=== PATIENT | female | born 1980 | race Caucasian/White ===

== ENCOUNTER 2022-03-14 13:32 | Emergency (ER) | payer OTHER, SELFPAY ==
[2022-03-14 13:56] VITALS: BP 134/86; PULSE 86; RESP 18; TEMP 36.7; O2SAT 97; BMI 37.8
[2022-03-14 14:35] LABS: BUN Creatinine Ratio 17.8 (6-22); Blood Urea Nitrogen 13 mg/dL (7-17); Calcium 8.8 mg/dL (8.4-10.2); Carbon Dioxide 26 mmol/L (22-32); Chloride 105 mmol/L (98-107); Estimated Glomerular Filt Rate > 60 mL/min (>60); Glucose 97 mg/dL (70-100); HEMOLYSIS < 15 (0-50); Potassium 4.5 mmol/L (3.4-5.1); Sodium 139 mmol/L (137-145)
[2022-03-14 14:40] LABS: Add Manual Diff / Slide Review NO; Basophils Absolute Auto 0 /uL (0-100); Basophils Percent Auto 0.5 % (0-2); Eosinophils Absolute Auto 200 /uL (0-450); Eosinophils Percent Auto 2.1 % (2-4); Hematocrit 38.2 % (36-46); Hemoglobin 12.3 g/dL (12.0-16.0); Lymphocytes Absolute Auto 2700 /uL (1100-4500); Lymphocytes Percent Auto 32.5 % (25-40); Mean Corpuscular HGB Conc 32.2 % (30-36); Mean Corpuscular Hemoglobin 25.7 PG (26-34); Mean Corpuscular Volume 79.9 fL (80-100); Monocytes Absolute Auto 500 /uL (0-900); Monocytes Percent Auto 5.9 % (3-14); Neutrophils Absolute Auto 4900 /uL (1500-7000); Platelet Count 302 X10^3/uL (150-400); Red Blood Cell Count 4.78 X10^6/uL (4.0-5.2); Red Cell Distribution Width 15.6 % (11.6-14.8); White Blood Cell Count 8.3 X10^3/uL (4.5-11.0)
[2022-03-14 15:11] LABS: Pregnancy Test Serum,Qual Negative (Negative)
--- NOTE | 2022-03-14 16:21 | DI.CT.S_ITS ---
PROCEDURE: CT ABDOMEN PELVIS W CON INDICATIONS: LLQ pain TECHNIQUE: After the administration of intravenous contrast, axial sections acquired from the lung bases to the pubic symphysis. Coronal and sagittal reformats were performed. For radiation dose reduction, the following was used: automated exposure control, adjustment of mA and/or kV according to patient size. COMPARISON: None. FINDINGS: Image quality: Excellent. Lung bases: Unremarkable. Heart: No significant findings. ABDOMEN: Liver: Unremarkable. Gallbladder: Unremarkable. Biliary ducts: Unremarkable. Pancreas: Unremarkable. Spleen: Unremarkable. Adrenal Glands: Unremarkable. Kidneys and Ureters: Unremarkable. Stomach and Bowel: Stomach, small bowel loops, and colon are unremarkable. The appendix is thin walled and gas filled. Peritoneum: No abnormal intraperitoneal fluid. No free air. Ventral Wall: No hernias. Abdominal Nodes: No retroperitoneal or mesenteric adenopathy by size criteria. Vessels: Aorta and inferior vena cava are normal in size. PELVIS: Pelvic Organs: The uterus and left ovary are grossly unremarkable. There are 2 low-density right ovarian cysts noted. Bladder: Unremarkable. Pelvic Nodes: No enlarged lymph nodes. Miscellaneous: No hernias are seen. Bones: Unremarkable. IMPRESSION: 1. No acute intra-abdominal findings. Normal appendix. 2. 2 low-density right ovarian cysts which are within physiologic limits for size in a premenopausal female. However, if further characterization is warranted, nonemergent pelvic ultrasound could be used. Dictated by: Deborah Palacios M.D. on 03/14/2022 at 16:52 Approved by: Deborah Palacios M.D. on 03/14/2022 at 16:55
--- NOTE | 2022-03-14 16:23 | ED_ITS ---
HPI - Female Genitourinary <Jessee Nails PA-C - Last Filed: 03/15/22 13:43> General Chief complaint: Vaginal Bleeding Stated complaint: pain in LT side/bleeding not cycle time T-1 Time Seen by Provider: 03/14/22 16:01 Source: patient Mode of arrival: Ambulatory History of Present Illness HPI Narrative: 41-year-old female with no reported past medical history presents to the ED with midcycle vaginal spotting. Patient also endorses left lower quadrant pain. Patient is on oral contraceptives and endorses good compliance with it. Denies that she missed any pills recently, and takes them at the same time daily. Patient denies fever, chills, chest pain, shortness of breath, nausea, vomiting, diarrhea, constipation, dysuria, lightheadedness, dizziness, syncope. Patient states that her spotting started yesterday. Related Data Allergies Allergy/AdvReac Type Severity Reaction Status Date / Time No Known Drug Allergies Allergy Verified 03/14/22 13:56 Review of Systems <Jessee Nails PA-C - Last Filed: 03/15/22 13:43> Review of Systems ROS Unobtainable: All systems reviewed & are unremarkable except as noted in HPI and below Constitutional Constitutional: Denies chills, Denies fatigue, Denies fever(s), Denies frequent falls, Denies lethargy and Denies weakness Eyes Eyes: Denies change in vision, Denies eye discharge, Denies irritation and Denies loss of vision ENT Ears, Nose, Mouth, and Throat: Denies change in voice, Denies dizziness, Denies neck pain, Denies sore throat and Denies throat swelling Cardiovascular Cardiovascular: Denies chest pain, Denies irregular heart rhythm, Denies lightheadedness, Denies palpitations, Denies dyspnea, Denies dyspnea on exertion and Denies orthopnea Respiratory Respiratory: Denies cough, Denies dyspnea, Denies dyspnea on exertion and Denies wheezing Gastrointestinal Gastrointestinal: Reports abdominal pain, Denies change in bowel habits, Denies diarrhea, Denies nausea and Denies vomiting Genitourinary Genitourinary: Reports abnormal vaginal bleeding, Denies hematuria, Denies flank pain, Denies urinary incontinence and Denies urinary urgency Musculoskeletal Musculoskeletal: Denies back pain, Denies muscle weakness, Denies neck pain, Denies numbness and Denies tingling Integumentary/Breasts Skin/Breast: Denies pruritus, Denies erythema, Denies rash and Denies wounds Neurologic Neurologic: Denies behavioral changes, Denies confusion, Denies dizziness, Denies frequent falls, Denies loss of vision, Denies numbness, Denies tingling and Denies weakness Psychiatric Psychiatric: Denies anxiety, Denies behavioral changes, Denies confusion, Denies depression, Denies homicidal ideation and Denies suicidal ideation Endocrine Endocrine: Denies fatigue, Denies flushing and Denies palpitations Hematologic/Lymphatic Hematologic/Lymphatic: Denies easy bruising Allergic/Immunologic Allergic/Immunologic: Denies urticaria, Denies throat swelling and Denies wheezing Patient History <Jessee Nails PA-C - Last Filed: 03/15/22 13:43> alcohol intake frequency: holidays/special occasions only Substance Use Type: does not use Exam <HAYDEN Frausto Last Filed: 03/15/22 13:43> Narrative Exam Narrative: Const General:?cooperative, healthy appearing and comfortable [facility] Head:?normal to inspection Ears:?hearing grossly normal bilaterally Nose:?external nose normal Face and sinus:?normal facial exam and sinuses nontender Mouth:?oral mucosae normal Throat:?posterior oropharynx normal Eyes General:?appearance normal, both eyes and all related structures Neck Neck:?normal visual inspection and no lymphadenopathy noted Resp Effort & Inspection:?normal respiratory effort Auscultation:?clear to auscultation bilaterally Cardio Rate:?regular rate Rhythm:?regular rhythm GI Abdomen is soft, nondistended. Tenderness to palpation in the left lower quadrant. No CVA tenderness. Neuro General:?patient alert, patient awake and patient oriented x3 Initial Vital Signs Initial Vital Signs: Vital Signs Temperature 98.0 F 03/14/22 13:56 Pulse Rate 86 03/14/22 13:56 Respiratory Rate 18 03/14/22 13:56 Blood Pressure 134/86 03/14/22 13:56 Pulse Oximetry 97 03/14/22 13:56 Oxygen Delivery Method 03/14/22 13:56 <Low Zeng DO - Last Filed: 03/16/22 10:40> Initial Vital Signs Initial Vital Signs: Vital Signs Temperature 98.0 F 03/14/22 13:56 Pulse Rate 86 03/14/22 13:56 Respiratory Rate 18 03/14/22 13:56 Blood Pressure 134/86 03/14/22 13:56 Pulse Oximetry 97 03/14/22 13:56 Oxygen Delivery Method 03/14/22 13:56 Course <Jessee Nails PA-C - Last Filed: 03/15/22 13:43> Orders Ordered: Discontinued Medications Ketorolac Tromethamine (Ketorolac 30 Mg/Ml Vial) 15 mg IV NOW ONE Stop: 03/14/22 16:22 Last Admin: 03/14/22 16:56 Dose: 15 mg Documented By: LIONEL Vital Signs Vital signs: Vital Signs - 8 hr 03/14/22 13:56 03/14/22 19:14 Temperature 98.0 F Pulse Rate 86 81 Respiratory Rate 18 16 Blood Pressure 134/86 125/87 Pulse Oximetry 97 98 Oxygen Delivery Method Room Air Room Air <Low Zeng DO - Last Filed: 03/16/22 10:40> Orders Ordered: Discontinued Medications Ketorolac Tromethamine (Ketorolac 30 Mg/Ml Vial) 15 mg IV NOW ONE Stop: 03/14/22 16:22 Last Admin: 03/14/22 16:56 Dose: 15 mg Documented By: RL Vital Signs Vital signs: Vital Signs - 8 hr 03/14/22 13:56 03/14/22 19:14 Temperature 98.0 F Pulse Rate 86 81 Respiratory Rate 18 16 Blood Pressure 134/86 125/87 Pulse Oximetry 97 98 Oxygen Delivery Method Room Air Room Air MDM - Female Genitourinary <Jessee Nails PA-C - Last Filed: 03/15/22 13:43> Lab Data Result diagrams: 03/14/22 14:05 03/14/22 14:05 Labs: Lab Results 03/14/22 03/14/22 03/14/22 Range/Units 14:05 14:05 14:05 WBC 8.3 (4.5-11.0) X10^3/uL RBC 4.78 (4.0-5.2) X10^6/uL Hgb 12.3 (12.0-16.0) g/dL Hct 38.2 (36-46) % MCV 79.9 L (80-100) fL MCH 25.7 L (26-34) PG MCHC 32.2 (30-36) % RDW 15.6 H (11.6-14.8) % Plt Count 302 (150-400) X10^3/uL Neut % (Auto) 59.0 (50-75) % Lymph % (Auto) 32.5 (25-40) % [place] % (Auto) 5.9 (3-14) % Eos % (Auto) 2.1 (2-4) % Baso % (Auto) 0.5 (0-2) % Neut # (Auto) 4900 (2375-0195) /uL Lymph # (Auto) 2700 (7325-6844) /uL [place] # (Auto) 500 (0-900) /uL Eos # (Auto) 200 (0-450) /uL Baso # (Auto) 0 (0-100) /uL Sodium 139 (137-145) mmol/L Potassium 4.5 (3.4-5.1) mmol/L Chloride 105 (98-107) mmol/L Carbon Dioxide 26 (22-32) mmol/L BUN 13 (7-17) mg/dL Creatinine 0.73 (0.52-1.04) mg/dL Estimated GFR > 60 (>60) mL/min BUN/Creatinine Ratio 17.8 (6-22) Glucose 97 (70-100) mg/dL Calcium 8.8 (8.4-10.2) mg/dL Serum , Qual (Negative) Urine RBC (0-5/HPF) Urine WBC (0-5/HPF) Ur Squamous Epith Cells (0-5/HPF) Amorphous Sediment Urine Bacteria (None) Ur Culture Indicated? Blood Type A Positive Antibody Screen Negative 03/14/22 03/14/22 Range/Units 14:05 16:07 WBC (4.5-11.0) X10^3/uL RBC (4.0-5.2) X10^6/uL Hgb (12.0-16.0) g/dL Hct (36-46) % MCV (80-100) fL MCH (26-34) PG MCHC (30-36) % RDW (11.6-14.8) % Plt Count (150-400) X10^3/uL Neut % (Auto) (50-75) % Lymph % (Auto) (25-40) % [place] % (Auto) (3-14) % Eos % (Auto) (2-4) % Baso % (Auto) (0-2) % Neut # (Auto) (5381-1355) /uL Lymph # (Auto) (4703-5731) /uL [place] # (Auto) (0-900) /uL Eos # (Auto) (0-450) /uL Baso # (Auto) (0-100) /uL Sodium (137-145) mmol/L Potassium (3.4-5.1) mmol/L Chloride (98-107) mmol/L Carbon Dioxide (22-32) mmol/L BUN (7-17) mg/dL Creatinine (0.52-1.04) mg/dL Estimated GFR (>60) mL/min BUN/Creatinine Ratio (6-22) Glucose (70-100) mg/dL Calcium (8.4-10.2) mg/dL Serum , Qual Negative (Negative) Urine RBC 0-1/hpf (0-5/HPF) Urine WBC 0-1/hpf (0-5/HPF) Ur Squamous Epith Cells 0-1 /hpf (0-5/HPF) Amorphous Sediment 1+ Urine Bacteria Occasional (0-1) (None) Ur Culture Indicated? Cult not indicated Blood Type Antibody Screen Urine Dip Bedside Urine Glucose Negative Bedside Urine Bilirubin - Negative Bedside Urine Ketone - Negative Urine Specific [place] 1.015 Bedside Urine Occult Blood ++ Bedside Urine pH 6.5 Bedside Urine Protein - Negative Bedside Urine Urobilinogen - Negative Bedside Urine Nitrite - Negative Bedside Urine Leukocytes - Negative Esterase MDM Narrative Medical decision making narrative: 41-year-old female with no reported past medical history presents to the ED with midcycle vaginal spotting. Concern for intrauterine versus threatened miscarriage versus ruptured ectopic versus midcycle breakthrough spotting versus ovarian torsion versus diverticulitis versus other intra-abdominal pathology versus nephrolithiasis versus UTI versus pyelonephritis versus other. Will obtain labs, UA, lactate, CT abdomen pelvis, pelvic ultrasound. Will give ketorolac for pain. Labs within normal limits, UA negative. CT abdomen pelvis shows right ovarian cysts which are within physiologic limits and no acute findings. Pelvic ultrasound shows fibroid uterus with no significant ovarian abnormality. Good flow to both ovaries. Discussed findings with patient, recommend OBGYN consult for further evaluation and treatment. Patient agrees to follow-up with her OBGYN. ED return precautions were also discussed with patient. Patient verbalized understanding. ? Medical records reviewed:??yes ? Exam documented above, pertinent findings include:? Tenderness to palpation of left lower quadrant ? Disposition: see below, along with detailed discharge instructions that have been reviewed with patient as well as indications for ED re-evaluation and chip tional outpatient follow up <Lowalex Zeng DO - Last Filed: 03/16/22 10:40> Lab Data Labs: Lab Results 03/14/22 03/14/22 03/14/22 Range/Units 14:05 14:05 14:05 WBC 8.3 (4.5-11.0) X10^3/uL RBC 4.78 (4.0-5.2) X10^6/uL Hgb 12.3 (12.0-16.0) g/dL Hct 38.2 (36-46) % MCV 79.9 L (80-100) fL MCH 25.7 L (26-34) PG MCHC 32.2 (30-36) % RDW 15.6 H (11.6-14.8) % Plt Count 302 (150-400) X10^3/uL Neut % (Auto) 59.0 (50-75) % Lymph % (Auto) 32.5 (25-40) % [place] % (Auto) 5.9 (3-14) % Eos % (Auto) 2.1 (2-4) % Baso % (Auto) 0.5 (0-2) % Neut # (Auto) 4900 (8574-9980) /uL Lymph # (Auto) 2700 (8368-6959) /uL [place] # (Auto) 500 (0-900) /uL Eos # (Auto) 200 (0-450) /uL Baso # (Auto) 0 (0-100) /uL Sodium 139 (137-145) mmol/L Potassium 4.5 (3.4-5.1) mmol/L Chloride 105 (98-107) mmol/L Carbon Dioxide 26 (22-32) mmol/L BUN 13 (7-17) mg/dL Creatinine 0.73 (0.52-1.04) mg/dL Estimated GFR > 60 (>60) mL/min BUN/Creatinine Ratio 17.8 (6-22) Glucose 97 (70-100) mg/dL Calcium 8.8 (8.4-10.2) mg/dL Serum , Qual (Negative) Urine RBC (0-5/HPF) Urine WBC (0-5/HPF) Ur Squamous Epith Cells (0-5/HPF) Amorphous Sediment Urine Bacteria (None) Ur Culture Indicated? Blood Type A Positive Antibody Screen Negative 03/14/22 03/14/22 Range/Units 14:05 16:07 WBC (4.5-11.0) X10^3/uL RBC (4.0-5.2) X10^6/uL Hgb (12.0-16.0) g/dL Hct (36-46) % MCV (80-100) fL MCH (26-34) PG MCHC (30-36) % RDW (11.6-14.8) % Plt Count (150-400) X10^3/uL Neut % (Auto) (50-75) % Lymph % (Auto) (25-40) % [place] % (Auto) (3-14) % Eos % (Auto) (2-4) % Baso % (Auto) (0-2) % Neut # (Auto) (7301-1791) /uL Lymph # (Auto) (3749-0743) /uL [place] # (Auto) (0-900) /uL Eos # (Auto) (0-450) /uL Baso # (Auto) (0-100) /uL Sodium (137-145) mmol/L Potassium (3.4-5.1) mmol/L Chloride (98-107) mmol/L Carbon Dioxide (22-32) mmol/L BUN (7-17) mg/dL Creatinine (0.52-1.04) mg/dL Estimated GFR (>60) mL/min BUN/Creatinine Ratio (6-22) Glucose (70-100) mg/dL Calcium (8.4-10.2) mg/dL Serum , Qual Negative (Negative) Urine RBC 0-1/hpf (0-5/HPF) Urine WBC 0-1/hpf (0-5/HPF) Ur Squamous Epith Cells 0-1 /hpf (0-5/HPF) Amorphous Sediment 1+ Urine Bacteria Occasional (0-1) (None) Ur Culture Indicated? Cult not indicated Blood Type Antibody Screen Urine Dip Bedside Urine Glucose Negative Bedside Urine Bilirubin - Negative Bedside Urine Ketone - Negative Urine Specific [place] 1.015 Bedside Urine Occult Blood ++ Bedside Urine pH 6.5 Bedside Urine Protein - Negative Bedside Urine Urobilinogen - Negative Bedside Urine Nitrite - Negative Bedside Urine Leukocytes - Negative Esterase Discharge Plan Departure Patient Disposition: Home Clinical Impression: Vaginal bleeding, Abdominal pain Instructions: DI for Abdominal Pain-Adult, DI for Vaginal Bleeding Activity Restrictions/Additional Instructions: You were evaluated in the ED today for vaginal bleeding and abdominal pain. Your labs, ultrasound, CT abdomen pelvis did not show any acute findings to explain your symptoms. Your off cycle bleeding could be related to your oral contraceptive and are or the fibroids seen in the ultrasound. Please follow-up with your OBGYN as soon as possible to monitor the ovarian cysts and fibroids as well as evaluate your off cycle bleeding. Return to the ED if your abdominal pain worsen, your vaginal bleeding worsens. Referrals: ProviderBea [Primary Care Provider] - Stand Alone Forms: Patient Portal/API <Low Zeng DO - Last Filed: 03/16/22 10:40> Cosign ED Attending Brittaature Attestation: I was immediately available in the department for consultation. This documentation has been reviewed and I agree with assessment and plan. Supervised by Low Zeng DO
[2022-03-14 16:44] LABS: Amorphous Sediment Urine 1+; Bacteria Urine Occasional (0-1); Culture Indicated Urine Cult Not Indicated; RBC Urine 0-1/HPF (0-5/HPF); Squamous Epithelial Cell Urine 0-1 /HPF (0-5/HPF); WBC Urine 0-1/HPF (0-5/HPF)
[2022-03-14] MEDS: KETOROLAC 30 MG/ML VIAL 15 MG IV (16:56)
--- NOTE | 2022-03-14 17:52 | DI.US.S_ITS ---
PROCEDURE: US PELVIC COMPLETE INDICATIONS: LEFT PELVIC PAIN SPOTTING TECHNIQUE: Real-time scanning was performed of the pelvic organs, with image documentation. Additional endovaginal scanning was necessary due to incomplete visualization of the adnexal and endometrial structures by transabdominal scanning. COMPARISON: None. FINDINGS: Uterus: Anteverted. 7.9 x 4.4 x 6.1 cm. Endometrium measures 2 mm. Multiple fibroids, intramural/subserosal. The largest measures 3.5 x 2.8 x 2.4 cm in the right anterior region and 2.5 x 2.0 x 2.2 cm in the left posterior region. Ovaries: Nonenlarged ovaries, within normal limits. Color and spectral flows were performed. Other: Nabothian cysts are present. IMPRESSION: Fibroid uterus. No significant ovarian abnormality. Dictated by: Monster Coffey M.D. on 03/14/2022 at 18:50 Approved by: Monster Coffey M.D. on 03/14/2022 at 18:53
[2022-03-14 19:14] VITALS: BP 125/87; PULSE 81; RESP 16; O2SAT 98
== END 2022-03-14 19:15 | disposition home or self-care (01) ==
PROVIDERS: Emergency Medicine; Emergency Provider Student in an Organized Health Care Education/Training Program
DX: N93.9 Abnormal uterine and vaginal bleeding, unspecified (principal); R10.32 Left lower quadrant pain
CPT/HCPCS: 74177; 76856; 80048; 81003; 81015; 84703; 85025; 86850; 86900; 86901; 93976; 96374; 99284; J1885; Q9967

== ENCOUNTER 2024-01-11 13:46 | Emergency (ER) | payer OTHER, SELFPAY ==
[2024-01-11 13:49] VITALS: BP 136/86; PULSE 85; RESP 18; TEMP 36.6; O2SAT 98; BMI 37.8
--- NOTE | 2024-01-11 13:53 | DI.RAD.S_ITS ---
PROCEDURE: XR KNEE LT 3V INDICATIONS: fall/pain TECHNIQUE: 3 views of the knee were acquired. COMPARISON: None. FINDINGS: Bones: No acute displaced fracture or dislocation. Soft tissues: Patellar enthesopathy. Possible small joint fluid. IMPRESSION: No acute radiographic abnormality. There is patellar enthesopathy. Possible small joint fluid. If there is high concern for further derangement, consider MRI evaluation. Dictated by: Monster Coffey M.D. on 01/11/2024 at 16:51 Approved by: Monster Coffey M.D. on 01/11/2024 at 16:51
--- NOTE | 2024-01-11 14:33 | ED_ITS ---
HPI - Extremity Injury (Lower) <Kristyn Hartley PA-C - Last Filed: 01/11/24 17:22> General Chief Complaint: Extremity Injury, Lower Stated Complaint: fall, L knee pain Time Seen by Provider: 01/11/24 13:56 Source: patient Mode of arrival: Ambulatory History of Present Illness HPI Narrative: Ms. Montoya is a pleasant 43-year-old female with no reported past medical history presents to the emergency department for left knee pain after a slip and fall that occurred this morning at approximately 4:30 a.m. Patient reports she walked in her house from outside and it was raining and her tile was wet causing her to slip in a straddle split position. Reports that she landed on her behind and did not hit her head. She immediately developed pain of the left knee and reports that she twisted the left knee awkwardly. States that she took 1000 mg of Tylenol at 5:00 a.m.. As the day went on, the knee slowly became more painful with ambulation which prompted her ER arrival. She reports that the left knee is more swollen than the right. Pain is exacerbated by moving the knee and walking on the knee. She describes the location of the pain primarily on the medial aspect of the left knee. Denies bruising, lacerations, back pain, neck pain, numbness, tingling. She is ambulatory but with pain. Her is with her and contributes to the history. Related Data Allergies Allergy/AdvReac Type Severity Reaction Status Date / Time No Known Drug Allergies Allergy Verified 03/14/22 13:56 Review of Systems <Kristyn Hartley PA-C - Last Filed: 01/11/24 17:22> Review of Systems ROS Unobtainable: All systems reviewed & are unremarkable except as noted in HPI and below Patient History <Kristyn Hartley PA-C - Last Filed: 01/11/24 17:22> Social History Smoking Status: Never smoker Smoking Status: Never smoker alcohol intake frequency: holidays/special occasions only Substance Use Type: does not use Exam <Kristyn Hartley PA-C - Last Filed: 01/11/24 17:22> Narrative Exam Narrative: GENERAL: 43 year old patient appears stated age. Well-developed patient, in no acute distress. HEAD: Atraumatic. Normocephalic. EYES: Extraocular motions intact. No scleral icterus. No injection or drainage. ENT: Nose without bleeding, purulent drainage. Airway patent. NECK: Trachea midline. Cervical ROM intact. CARDIOVASCULAR: Regular rate and rhythm. RESPIRATORY: ?Nonlabored respirations. ?Speaking in clear, full sentences. ?Clear to auscultation. Breath sounds equal bilaterally. No wheezes, rales, or rhonchi. ? EXTREMITIES: Tenderness to palpation of the medial joint line of the left knee. Mild diffuse swelling of the left knee when compared to right. No reproducible joint laxity. Negative posterior drawer test and Triny's test. No ecchymosis or lacerations. No tenderness to palpation of left thigh, calf, ankle, foot. BACK: Nontender without deformity or crepitance. No flank tenderness. NEURO: AOx3. ?Clear speech. ?Moves all 4 extremities appropriately. SKIN: No rash or erythema of visible areas Initial Vital Signs Initial Vital Signs: Vital Signs Temperature 98 F 01/11/24 13:49 Pulse Rate 85 01/11/24 13:49 Respiratory Rate 18 01/11/24 13:49 Blood Pressure 136/86 01/11/24 13:49 Pulse Oximetry 98 01/11/24 13:49 Oxygen Delivery Method Room Air 01/11/24 13:49 <Mauricio Guerrero DO - Last Filed: 01/11/24 17:34> Initial Vital Signs Initial Vital Signs: Vital Signs Temperature 98 F 01/11/24 13:49 Pulse Rate 85 01/11/24 13:49 Respiratory Rate 18 01/11/24 13:49 Blood Pressure 136/86 01/11/24 13:49 Pulse Oximetry 98 01/11/24 13:49 Oxygen Delivery Method Room Air 01/11/24 13:49 Course <Kristyn Hartley PA-C - Last Filed: 01/11/24 17:22> Orders Ordered: ED Orders 01/11/24 13:53 XR knee LT 3V Stat Discontinued Medications Acetaminophen (Acetaminophen 325 Mg Tablet) 975 mg PO NOW ONE Stop: 01/11/24 14:47 Last Admin: 01/11/24 14:53 Dose: 975 mg Documented By: KIERSTEN Ibuprofen (Ibuprofen 400 Mg Tablet) 800 mg PO NOW ONE Stop: 01/11/24 14:47 Last Admin: 01/11/24 14:53 Dose: 800 mg Documented By: KIERSTEN Vital Signs Vital signs: Vital Signs - 8 hr 01/11/24 13:49 01/11/24 17:29 Temperature 98 F Pulse Rate 85 75 Respiratory Rate 18 16 Blood Pressure 136/86 130/84 Pulse Oximetry 98 97 Oxygen Delivery Method Room Air Room Air <Mauricio Guerrero DO - Last Filed: 01/11/24 17:34> Orders Ordered: ED Orders 01/11/24 13:53 XR knee LT 3V Stat Discontinued Medications Acetaminophen (Acetaminophen 325 Mg Tablet) 975 mg PO NOW ONE Stop: 01/11/24 14:47 Last Admin: 01/11/24 14:53 Dose: 975 mg Documented By: KIERSTEN Ibuprofen (Ibuprofen 400 Mg Tablet) 800 mg PO NOW ONE Stop: 01/11/24 14:47 Last Admin: 01/11/24 14:53 Dose: 800 mg Documented By: KIERSTEN Vital Signs Vital signs: Vital Signs - 8 hr 01/11/24 13:49 01/11/24 17:29 Temperature 98 F Pulse Rate 85 75 Respiratory Rate 18 16 Blood Pressure 136/86 130/84 Pulse Oximetry 98 97 Oxygen Delivery Method Room Air Room Air MDM - Extremity Injury (Lower) <Kristyn Hartley PA-C - Last Filed: 01/11/24 17:22> Imaging Data Left Knee XRay: My Impression: On my independent interpretation of left knee x-ray, no proximal tibia or fibula fracture. Radiologist's Impression: PROCEDURE: XR KNEE LT 3V INDICATIONS: fall/pain TECHNIQUE: 3 views of the knee were acquired. COMPARISON: None. FINDINGS: Bones: No acute displaced fracture or dislocation. Soft tissues: Patellar enthesopathy. Possible small joint fluid. IMPRESSION: No acute radiographic abnormality. There is patellar enthesopathy. Possible small joint fluid. If there is high concern for further derangement, consider MRI evaluation. [facility] Narrative Medical decision making narrative: 43-year-old female presents to the emergency department for left knee pain after a slip and fall causing her to land in a split like position. Differential diagnosis includes but not limited to patellar fracture, tibial plateau fracture, meniscus and ligament injury, patellar dislocation, tendinitis, patellar tendon rupture, quadriceps tendon rupture, arthritis, joint effusion, etc.. On exam patient is in no acute distress, nontoxic appearing. All vital signs within normal limits. She is ambulatory but with pain. Left knee with mild diffuse swelling and medial joint line tenderness. Left knee x-ray ordered in addition to ibuprofen and Tylenol. Patient is perimenopausal and declines HCG test, states she has not . X-ray reveals no acute radiographic abnormality. The patient does have patellar enthesopathy and a possible small joint fluid. All x-ray results were discussed with patient and she was provided with a printed copy. After shared decision- making with the patient, she would not like a knee immobilizer and would set like an Preet wrap of the left knee at this time. She declines crutches. Advised patient RICE therapy and follow up with primary care doctor. Provided her with orthopedic follow up in the setting that she has persistent pain. Discussed strict ER return precautions. Patient is ambulatory and stable for discharge at this time. Discharge Plan Departure Patient Disposition: Home Clinical Impression: Acute pain of left knee Left knee sprain Qualifiers: Encounter type: initial encounter Involved ligament of knee: unspecified ligament Qualified Code(s): S83.92XA - Sprain of unspecified site of left knee, initial encounter Instructions: DI for Knee Sprain Activity Restrictions/Additional Instructions: Please Rest, Ice the left knee for 15 minutes four times a day, wear a Compressive wrap around the knee, and Elevate the knee to reduce swelling (RICE therapy). You may take 600 mg of ibuprofen and/or 1000 mg of acetaminophen (Tylenol) every 6-8 hours for pain. Please follow up with the primary care doctor within the next week for repeat evaluation. If you have persistent pain, you will need to follow up with the orthopedic doctor. You may call [facility] at [phone]. Please follow up with your primary care doctor within the next 2-3 days. Return to the emergency department for any new or worsening symptoms, or any other concerns. Thank you for letting me participate in your care, Kristyn Hartley PA-C Referrals: Provider,Bea SPAIN [Primary Care Provider] - Stand Alone Forms: Patient Portal/API/Survey, Work Release Note ED Sign-out <Mauricio Guerrero, DO - Last Filed: 01/11/24 17:34> Cosign ED Attending Cosignature Attestation: Dr Guerrero Co-Sign Statement: I was available for consultation during this patient's emergency department visit. This chart is signed by myself for administrative purposes only. I did not have direct contact with this patient during this visit. They were seen independently by the APC.
[2024-01-11] MEDS: IBUPROFEN 400 MG TABLET 800 MG PO (14:53)
[2024-01-11] MEDS: ACETAMINOPHEN 325 MG TABLET 975 MG PO (14:53)
[2024-01-11 17:29] VITALS: BP 130/84; PULSE 75; RESP 16; O2SAT 97
== END 2024-01-11 17:30 | disposition home or self-care (01) ==
PROVIDERS: Emergency Provider Physician Assistant
DX: S83.92XA Sprain of unspecified site of left knee, initial encounter (principal); M25.562 Pain in left knee; W01.0XXA Fall on same level from slipping, tripping and stumbling without subsequent striking against object, initial encounter
CPT/HCPCS: 73562; 99283